=== PATIENT | female | born 1950 | race Caucasian/White ===

== ENCOUNTER → 2019-01-18 | Outpatient (CLI) | payer MEDICARE ==
--- NOTE | 2019-01-18 11:50 | BD ---
EXAMINATION TYPE: Axial Bone Density DATE OF EXAM: 01/18/2019 COMPARISON:2010 CLINICAL HISTORY: care home current drug therapy Height: 5' 1 1/2 Weight: 210 FRAX RISK QUESTIONS: Secondary Osteoporosis: RISK FACTORS HISTORY OF: Family History of Osteoporosis: y Postmenopausal woman: y MEDICATIONS: Additional Medications: xanax Additional History: breast cancer, radiation and chemotherapy EXAM MEASUREMENTS: Bone mineral densitometry was performed using the finalsite System. Bone mineral density as measured about the Lumbar spine is: ----- L1-L4(G/cm2): 1.505 T Score Values are as follows: ----- L2: 2.4 ----- L3: 3.5 ----- L4: 3.8 ----- L1-L4: 2.7 Bone mineral density has: Increased 12.8% since study of: 10/09/2010 Bone mineral density about the R hip (g/cm2): 0.960 Bone mineral density about the L hip (g/cm2): 1.035 T Score values are as follows: -----R Neck: -0.6 -----L Neck: 0.0 -----R Total: 1.6 -----L Total: 1.9 Bone mineral density has: Decreased -5.7% since study of: 10/09/2010 IMPRESSION: Normal (Values between +1 and -1 indicate normal bone mass). Consider repeating this study in 5 year s or sooner if there is some new clinical indication. NOTE: T-SCORE=SD OF THE YOUNG ADULT MEAN.
== END | disposition home or self-care (01) ==
LOC: RADBDWWP 11:06
PROVIDERS: ATTEND Family Medicine
DX: Z51.81 Encounter for therapeutic drug level monitoring (principal); Z79.899 Other long term (current) drug therapy
CPT/HCPCS: 77080

== ENCOUNTER → 2019-10-24 | Outpatient (CLI) | payer MEDICARE ==
--- NOTE | 2019-10-24 15:20 | CONS ---
CONSULTATION DATE OF SERVICE: 10/24/2019. REASON FOR CONSULTATION: Daytime sleepiness. This is a very pleasant 69-year-old female patient who follows with Dr. Patricia as her primary care provider. She has a history of anxiety, breast cancer with bilateral mastectomy in 2013. She has an [place] score of 1. She has been complaining of excessive fatigue and daytime sleepiness. She is snoring according to her spouse. She has nocturia and dry mouth. She goes to bed at approximately 11:30 pm and wakes up at 7 am, same on the weekends. She feels she sleeps approximately 6 hours at night. She does watch TV in her bedroom. She usually sleeps on her back or side. She denies any significant napping during the day. She drinks approximately 2 cups of coffee per day. PAST MEDICAL HISTORY: Includes breast cancer, anxiety, difficulty falling asleep. PAST SURGICAL HISTORY: Includes bilateral mastectomies. FAMILY HISTORY: Positive for coronary artery disease and myocardial infarction in her father. diabetes mellitus, congestive heart failure, hypertension in her mother. REVIEW OF SYSTEMS: 14-point review of system was conducted. All negative other than as mentioned in the HPI, including excessive daytime sleepiness, snoring, nocturia, dry mouth. ALLERGIES: BIAXIN. HOME MEDICATIONS: Xanax half a tablet at bedtime. PHYSICAL EXAM: Vital signs revealed blood pressure 127/75, heart rate 92, respirations 16, temperature is 98.0, she is 97% O2 saturation on room air. She is 5 foot 1-1/2 inches tall with a weight of 206 pounds and a BMI of 38.2, and neck circumference 15 inches. GENERAL APPEARANCE: The patient is a very pleasant 69-year-old female patient, calm and comfortable on room air. HEAD: Normocephalic. There is some crowding in the posterior pharynx. NECK: Supple. Trachea midline. LUNGS: Clear anteriorly and posteriorly. ABDOMEN: Soft, nontender. Bowel sounds are present. There is no significant peripheral edema. No clubbing. No cyanosis. Peripheral pulses are intact. INVESTIGATIONS: No new investigations. IMPRESSION: 1. Daytime sleepiness with disrupted sleep pattern and history of snoring. 2. Obesity. 3. Insomnia requiring Xanax. 4. [place] score of 1. 5. History of breast cancer with bilateral mastectomies in 2013. PLAN: The patient was seen and evaluated by Dr. Larsen. The patient does have a low suspicion for obstructive sleep apnea. However, based on the above-mentioned multiple symptoms, he will request a sleep study. The patient is agreeable to the plan. She verbalizes understanding. She was educated regarding the importance of weight loss and good sleep hygiene. She will be set up for a sleep study. We will see her in followup and make further recommendations based on those findings. I, the cosigning physician, performed a history and physical examination on the patient. Lung sounds are clear. Maintain good O2 saturations in the 90s on room air. I discussed the assessment and plan of care with my nurse practitioner, Bonnie Oh. I attest the above consultation is dictated by her. MMODL / IJN: [id number] /
== END ==
LOC: SLEEP 13:20
PROVIDERS: ATTEND Internal Medicine Critical Care Medicine
DX: G47.10 Hypersomnia, unspecified (principal); E66.9 Obesity, unspecified; G47.00 Insomnia, unspecified; Z85.3 Personal history of malignant neoplasm of breast; Z90.13 Acquired absence of bilateral breasts and nipples; Z68.38 Body mass index [BMI] 38.0-38.9, adult; Z79.899 Other long term (current) drug therapy; Z88.1 Allergy status to other antibiotic agents
CPT/HCPCS: 99211

== ENCOUNTER → 2022-05-19 | Outpatient (CLI) | payer MEDICARE ==
[2022-05-19 16:10] LABS: Basophils # (A) 0.04 X 10*3/uL (0.00-0.10); Basophils % (A) 0.5 %; Eosinophils # (A) 0.14 X 10*3/uL (0.04-0.35); Eosinophils % (A) 1.8 %; HCT 41.3 % (37.2-46.3); HGB 14.4 g/dL (12.0-15.0); Immature Grans, Automated 0.3 %; Lymphocytes % (A) 20.5 %; MCH 32.7 pg (27.0-32.0); MCHC 34.9 g/dL (32.0-37.0); MCV 93.9 fL (80.0-97.0); Mean Platelet Volume 9.9 fL (9.5-12.2); Monocytes # (A) 0.82 X 10*3/uL (0.20-1.00); Monocytes % (A) 10.5 %; NRBC Per 100 WBC 0 /100 WBCS (0.0-0.0); Neutrophils % (A) 66.4 %; Platelet Count 285 X 10*3/uL (140-440); WBC 7.82 X 10*3/uL (4.50-10.00)
[2022-05-19 16:37] LABS: African American GFR (CKD) 93.2 (60.0-200.0); Anion Gap 13.8 mmol/L (10.00-18.00); BUN/Creat Ratio 14.44 Ratio (12.00-20.00); Blood Urea Nitrogen 10.8 mg/dL (9.0-27.0); Calcium 9.6 mg/dL (8.7-10.3); Carbon Dioxide 21.3 mmol/L (20.0-27.5); Non-African American GFR(CKD) 80.5 (60.0-200.0); Potassium 4.3 mmol/L (3.5-5.5)
== END | disposition home or self-care (01) ==
LOC: LABPAT 09:26
PROVIDERS: ATTEND Orthopaedic Surgery Hand Surgery
DX: Z01.818 Encounter for other preprocedural examination (principal); I45.19 Other right bundle-branch block; G56.21 Lesion of ulnar nerve, right upper limb; R94.31 Abnormal electrocardiogram [ECG] [EKG]
CPT/HCPCS: 80048; 85025; 93005

== ENCOUNTER → 2022-07-03 | Outpatient (CLI) | payer MEDICARE ==
[2022-07-03 14:41] LABS: Basophils # (A) 0.04 X 10*3/uL (0.00-0.10); Basophils % (A) 0.5 %; Eosinophils # (A) 0.14 X 10*3/uL (0.04-0.35); Eosinophils % (A) 1.7 %; HCT 41.6 % (37.2-46.3); HGB 14.3 g/dL (12.0-15.0); Immature Grans, Automated 0.4 %; Lymphocytes # (A) 1.93 X 10*3/uL (0.90-5.00); Lymphocytes % (A) 22.8 %; MCH 32.6 pg (27.0-32.0); MCHC 34.4 g/dL (32.0-37.0); MCV 94.8 fL (80.0-97.0); Mean Platelet Volume 9.9 fL (9.5-12.2); Monocytes # (A) 0.86 X 10*3/uL (0.20-1.00); Monocytes % (A) 10.2 %; NRBC Per 100 WBC 0 /100 WBCS (0.0-0.0); Neutrophils # (A) 5.47 X 10*3/uL (1.80-7.70); Neutrophils % (A) 64.4 %; Platelet Count 315 X 10*3/uL (140-440); RBC 4.39 X 10*6/uL (4.10-5.20); WBC 8.47 X 10*3/uL (4.50-10.00)
[2022-07-03 16:47] LABS: African American GFR (CKD) 101.3 (60.0-200.0); Anion Gap 11.3 mmol/L (10.00-18.00); BUN/Creat Ratio 14.84 Ratio (12.00-20.00); Blood Urea Nitrogen 10.3 mg/dL (9.0-27.0); Calcium 9.7 mg/dL (8.7-10.3); Carbon Dioxide 22.8 mmol/L (20.0-27.5); Non-African American GFR(CKD) 87.4 (60.0-200.0); Potassium 4.2 mmol/L (3.5-5.5)
== END | disposition home or self-care (01) ==
LOC: LABPAT 09:24
PROVIDERS: ATTEND Orthopaedic Surgery Hand Surgery
DX: Z01.812 Encounter for preprocedural laboratory examination (principal); G56.21 Lesion of ulnar nerve, right upper limb
CPT/HCPCS: 80048; 85025

== ENCOUNTER 2022-07-08 12:09 | Day surgery (SDC) | payer MEDICARE ==
[2022-07-03 15:40] VITALS: BMI 38.0
--- NOTE | 2022-07-07 10:09 | P.HPOR ---
History of Present Illness H&P Date: 07/07/22 Chief Complaint: Right cubital tunnel syndrome Subjective: This is a 71 year old female that presents today for initial evaluation regarding right small and ring finger paresthesias that have been progressively worsening for the past 9 months to 1 year. She has tried splinting and activity modifications with little relief and her numbness is progressively getting worse and more persistent. She denies any injury and had an EMG in October of 2021. She denies paresthesias in any other digits. Physical Examination: RUE: AIN/PIN/Radial/Ulnar/Median motor intact. Radial/Ulnar/Median SILT. 2+/4 Radial/Ulnar pulses palpated. 5/5 APB, 5/5 FDI. Negative Finkelsteins, negative CMC grind, negative Durkan's compression. Positive tinels at elbow. Subjective paresthesias in ring and small finger with prolonged elbow flexion. EMG/NCV 11/03/21 of right upper extremity shows right cubital tunnel syndrome, mild carpal tunnel syndrome. Impression: 1.) Right cubital tunnel syndrome Plan: Diagnosis and treatment options were discussed with the patient. She has failed conservative treatment and would like to proceed with a right open cubital tunnel release. EMG findings were discussed that demonstrated mild carpal tunnel, however this EMG was performed 6 months prior and she states she no longer has paresthesias in the thumb, index and middle fingers and is not symptomatic in regards to her carpal tunnel syndrome. Risks and benefits of surgery including bleeding, infection,incomplete resolution of symptoms, damage to surrounding tissue, need for further surgery, residual numbness were discussed and the patient wished to go forward with surgery. PCP clearance is requested. -Agapito Waite DO Orthopedic Hand/Upper Extremity Surgeon Past Medical History Past Medical History: Cancer, Osteoarthritis (OA) Additional Past Medical History / Comment(s): ENVIRONMENTAL ALLERGIES , RIGHT AND LEFT BREAST CANCER, SKIN CANCER History of Any Multi-Drug Resistant Organisms: None Reported Past Surgical History: Breast Surgery, Tubal Ligation Additional Past Surgical History / Comment(s): BILATERAL MASTECTOMY, Past Anesthesia/Blood Transfusion Reactions: Previous Problems w/ Anesthesia, Family History of Problems w/ Anesthesia, Motion Sickness, Postoperative Nausea & Vomiting (PONV) Additional Past Anesthesia/Blood Transfusion Reaction / Comment(s): TAKES LONGER TO WAKE UP FROM ANESTHESIA , daughter has post op nausea Smoking Status: Never smoker - Past Family History Daughter(s) Family Medical History: Cancer Additional Family Medical History / Comment(s): breast cancer Medications and Allergies Home Medications Medication Instructions Recorded Confirmed Type ALPRAZolam [Xanax] 0.25 mg PO BID PRN 06/01/22 07/03/22 History Cetirizine HCl [Zyrtec] 10 mg PO BID PRN 06/01/22 07/03/22 History Latanoprost [Latanoprost 0.005%] 1 drop LEFT EYE HS 07/03/22 07/03/22 History Allergies Allergy/AdvReac Type Severity Reaction Status Date / Time amoxicillin [From Augmentin] AdvReac Nausea & Verified 07/03/22 15:04 Vomiting clarithromycin [From Biaxin] AdvReac Nausea & Verified 07/03/22 15:04 Vomiting clavulanic acid AdvReac Nausea & Verified 07/03/22 15:04 [From Augmentin] Vomiting Physical Examination Osteopathic Statement: *. No significant issues noted on an osteopathic structu ral exam other than those noted in the History and Physical/Consult.
[~2022-07-08 12:09] MED LIST: DEXAMETHASONE SOD PHOSPHATE 4 MG/ML 1 ML VIAL IV ONE; HYDROmorphone 0.5 MG/0.5 ML SYRINGE IVP PRN; LACTATED RINGERS 1,000 ML IV SCH; MIDAZOLAM 2 MG/2 ML VIAL IV PRN; ONDANSETRON 4 MG/2 ML VIAL IVP ONE; Pre Op ABX Message 1 EACH MISC MISCELLANE ONE
[2022-07-08] MEDS ORDERED: LIDOCAINE 1% (10MG/ML) FOR IV START INTRADERMA ONE (12:39)
[2022-07-08] MEDS ORDERED: LIDOCAINE 1% INJ 10MG/ML (10 ML MDV) SQ ONE ×2 (12:58→13:15)
[2022-07-08] MEDS ORDERED: BUPIVACAINE (PF) 0.5% 30 ML VIAL SQ ONE ×2 (12:58→13:15)
[2022-07-08] MEDS ORDERED: MIDAZOLAM 2 MG/2 ML VIAL ONE (13:10)
[2022-07-08] MEDS ORDERED: fentaNYL (PF) 50 MCG/ML 2 ML AMP ONE (13:10)
[2022-07-08] MEDS ORDERED: LIDOCAINE 2% INJ 20 MG/ML (2 ML VIAL) ONE (13:10)
[2022-07-08] MEDS ORDERED: PROPOFOL 10 MG/ML 20 ML VIAL IV ONE (13:10)
[2022-07-08] MEDS ORDERED: PHENYLEPHRINE-0.9% NACL SYG 1,000 MCG/10 ML SYRINGE ONE (13:10)
[2022-07-08 14:44] VITALS: TEMP 97.5
[2022-07-08 15:06] VITALS: RESP 16
[2022-07-08] MEDS ORDERED: ONDANSETRON 4 MG/2 ML VIAL IVP ONE (16:00)
[2022-07-08 16:26] VITALS: BP 132/88; PULSE 88
--- NOTE | 2022-07-09 09:13 | P.OP ---
Date of Procedure: 07/08/22 Preoperative Diagnosis: 1.) Right cubital tunnel syndrome Postoperative Diagnosis: 1.) Right cubital tunnel syndrome Procedure(s) Performed: 1.) Right cubital tunnel release, in situ. Anesthesia: ALEKSANDR Surgeon: Agapito Waite Estimated Blood Loss (ml): 10 Pathology: none sent Condition: stable Disposition: PACU Description of Procedure: This is a 71 year old female who presented today for a right open cubital tunnel release after having failed conservative treatment. Risks and benefits of surgery were discussed with the patient including bleeding, damage to surrounding tissue, infection, need for further surgery as well as risks of anesthesia including pulmonary embolism and even and the patient wished to proceed with surgical intervention. The patient was seen in the pre-operative area by myself. Consent and H&P were completed and updated. The correct extremity was marked in the pre-operative area by myself and all other questions were answered. Operative Narrative: The patient was brought to the operating room by the department of anesthesia. They remained on the portable stretcher and a rolling hand table was brought to the side of the operative extremity. Pre-operative time out was performed indicating the correct patient, procedure and laterality. All in the room agreed. Pre-operative antibiotics were given prior to skin incision. The patient was then drifted off to sleep by the department of anesthesia. A nonsterile tourniquet was then applied to the operative extremity and the right upper extremity was then prepped and draped in normal sterile fashion. The operative extremity was the exsanguinated with an esmarch bandage and the tourniquet was inflated to 250mmHg. Attention was brought to the medial elbow. 15 blade scalpel was used to incise skin in between the medial epicondyle and olecranon in a curvlinear and longitudinal fashion. Blunt dissection was taken down through subcutaneous tissue with tenotomy scissors and branches of the MABCN were identified and protected. Dissection was carried proximally and the ulnar nerve was identified and released in it's entirety to berna. Dissection was then carried distally and watson's ligament was released at the medial epicondyle, the nerve appeared very compressed and kinked at this location. Dissection was then carried out further distal and the fascia of the two heads of the FCU were incised and the ulnar nerve was decompressed with Bette and tenotomy scissors and appeared to be tension free. The elbow was the flexed and extended and the ulnar nerve appeared to be stable in a tension free manner. 0.5% bupivacaine was injected into the subcutaneous tissues. Skin closure was performed with interrupted 4-0 Monocryl sutures followed by running 4-0 Monocryl sutures tourniquet was then let down and the hand had immediate perfusion. Large soft dressing was applied. The patient was then woken by the department of anesthesia and transferred to PACU in stable condition. Agapito Waite D.O. Orthopedic Hand/Upper Extremity Surgeon
== END 2022-07-08 16:44 | disposition home or self-care (01) ==
LOC: OR 12:09
PROVIDERS: ATTEND Orthopaedic Surgery Hand Surgery
DX: G56.21 Lesion of ulnar nerve, right upper limb (principal); M19.90 Unspecified osteoarthritis, unspecified site; Z80.3 Family history of malignant neoplasm of breast; Z85.3 Personal history of malignant neoplasm of breast; Z85.828 Personal history of other malignant neoplasm of skin; Z88.0 Allergy status to penicillin; Z88.1 Allergy status to other antibiotic agents
CPT/HCPCS: 64718; J2250; J1100; J2405; J3010; J2370; J2001 ×2; J2704

== ENCOUNTER → 2023-12-16 | Outpatient (CLI) | payer MEDICARE ==
--- NOTE | 2023-12-16 09:50 | MR ---
EXAMINATION TYPE: MR MRCP DATE OF EXAM: 12/16/2023 9:27 AM CLINICAL INDICATION:Female, 73 years old with history of C50.919; PHH, Abdominal pain for 1 year, johnny ast cancer. COMPARISON: none TECHNIQUE: Multi planar, T2-weighted imaging with and without fat saturation and chemical shift imag ing was performed of the abdomen. Then, heavily T2 weighted imaging (half-Fourier acquisition single- shot turbo spin-echo) was utilized in order to study the biliary system. Maximum intensity projectio n images were reconstructed from the original data of the biliary tree. 3D images were created on [employer] work station. No Gadolinium given. FINDINGS: Lower Thorax: No evidence for acute process. Bilateral breast implants. Mild cardiomegaly. MRCP: * The intrahepatic ducts have a normal appearance. * The common bile duct at the level of the pancreatic head measures 4 mm in size. * The common hepatic duct measures 5 mm in size. * The pancreatic duct is normal. * The gallbladder appears unremarkable. Abdomen: Liver: No evidence for cirrhosis. Signal dropout on chemical shift out of phase imaging. Pancreas: No ductal dilation. No evidence for solid mass. A millimeter on same process at T2 signal c ystic lesion Spleen: Normal for size. Adrenal glands: Unremarkable. Kidneys: No evidence for obstructive uropathy. No suspicious renal masses. Stomach and Bowel: No evidence for bowel wall thickening or evidence for obstruction. Retroperitoneum/Peritoneum: No evidence of pneumoperitoneum or free fluid. Vasculature: No aortic aneurysm. Musculoskeletal: The osseous structures appear intact. Multilevel degeneration changes throughout the spine with mild scoliosis. Lymph Nodes: No gross evidence for lymphadenopathy. Abdominal wall: Unremarkable. IMPRESSION: 1. No evidence for acute abdominal process to expand the patient's pain. 2. No lymphadenopathy 3. No evidence to suggest ductal stricture, choledocholithiasis, or biliary ductal dilatation. 4. Pancreatic uncinate process 8 mm cystic lesion possibly representing sequela of prior pancreatiti s versus side branch intraductal mucinous neoplasm versus other cystic neoplasms. Attention on follow -up imaging in one year with MRI MRCP with contrast to ensure stability. 5. Hepatic steatosis.
== END | disposition home or self-care (01) ==
LOC: RADMRIMAIN 08:24
PROVIDERS: ATTEND Internal Medicine Hematology & Oncology
DX: C50.919 Malignant neoplasm of unspecified site of unspecified female breast (principal); K76.0 Fatty (change of) liver, not elsewhere classified; K86.2 Cyst of pancreas
CPT/HCPCS: 74181

== ENCOUNTER → 2024-10-20 | Outpatient (CLI) | payer MEDICARE ==
--- NOTE | 2024-10-20 10:09 | MR ---
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 History of breast cancer. COMPARISON: MR MRCP 12/16/2023. TECHNIQUE: Multi planar, T2-weighted imaging with and without fat saturation and chemical shift imag ing was performed of the abdomen. Then, heavily T2 weighted imaging was utilized in order to study th e biliary system. Maximum intensity projection images were reconstructed from the original data of t he biliary tree. No Gadolinium given. FINDINGS: MRCP: The intrahepatic ducts have a normal appearance. The common bile duct at the level of the klein creatic head measures 4 mm in size. The common hepatic duct measures 3 mm in size. The pancreatic du ct is normal. The gallbladder appears unremarkable. Abdomen: The spleen, adrenal glands, and kidneys have a normal noncontrast appearance. The liver is a t the upper limits of normal for size. There is signal dropout again on chemical shift out of phase i maging. Stable T2 hyperintense 7 mm cystic lesion within the uncinate process of the pancreas. Other: Bilateral breast prosthesis. Mild cardiomegaly. Multilevel degenerative changes throughout the visualized spine with mild scoliosis. Small hiatal hernia. Distal duodenal diverticulum. No visualiz ed lymphadenopathy. IMPRESSION: 1. No evidence to suggest ductal stricture, choledocholithiasis, or biliary ductal dilatation. 2. Stable pancreatic uncinate process 7 mm cystic lesion possibly representing sequelae of prior klein creatitis versus side branch intraductal mucinous neoplasm versus other. 3. Hepatic steatosis. [facility], , 10/20/2024 10:06 AM
== END | disposition home or self-care (01) ==
LOC: RADMRIMAIN 08:41
PROVIDERS: ATTEND Internal Medicine Hematology & Oncology
DX: C50.919 Malignant neoplasm of unspecified site of unspecified female breast (principal); K76.0 Fatty (change of) liver, not elsewhere classified; K86.89 Other specified diseases of pancreas
CPT/HCPCS: 74181